=== PATIENT | male | born 1940 | race Caucasian/White ===

== ENCOUNTER 2016-05-20 09:56 | Emergency (ER) | payer OTHER ==
[~2016-05-20] VITALS: Ht 180.3 cm; Wt 81.6 kg
[2016-05-20 10:40] VITALS: BP 142/52
[2016-05-20] MEDS ORDERED: LEVO112T35 PO (10:51)
[2016-05-20] MEDS ORDERED: ATOR20TA50 PO (10:52)
[2016-05-20] MEDS ORDERED: LISI-275 PO (10:52)
[2016-05-20] MEDS ORDERED: ASPI81TA27 PO (10:52)
[2016-05-20 11:38] LABS: Basophils # (auto) 0 uL; Basophils % (auto) 0.5 % (0.0-2.0); Eosinophils # (auto) 0.3 uL; Eosinophils % (auto) 5.2 % (0.0-7.0); Hematocrit 38.6 % (41.0-53.0); Hemoglobin 12.3 g/dL (13.5-17.5); Lymphocytes # (auto) 1.3 uL; Lymphocytes % (auto) 26.8 % (10.0-50.0); Mean Corpuscular Hemoglobin 29.6 pg (28.0-32.0); Mean Corpuscular Hgb Conc. 31.8 g/dL (32.0-36.0); Mean Corpuscular Volume 93.3 fL (80.0-100.0); Mean Platelet Volume 7.8 fL (7.4-10.4); Monocytes # (auto) 0.5 uL; Monocytes % (auto) 10.8 % (0.0-12.0); Neutrophils # (auto) 2.9 uL; Neutrophils % (auto) 56.7 % (37.0-80.0); Platelet Count (auto) 243 10^3/uL (140-450); Red Cell Distribution Width 14.2 % (11.6-16.0)
[2016-05-20 12:07] LABS: Albumin 4.1 g/dL (3.4-5.0); BUN/Creatinine Ratio 22.9; Bilirubin, Total 1.3 mg/dL (0.2-1.0); Calcium 8.8 mg/dL (8.5-10.1); Potassium 4.3 mmol/L (3.5-5.1); Total Protein 7.2 g/dL (6.4-8.2)
== END 2016-05-20 13:00 | disposition home or self-care (01) ==
LOC: ER 09:56
DX: M79.604 Pain in right leg (principal); E78.5 Hyperlipidemia, unspecified; I10 Essential (primary) hypertension; I25.2 Old myocardial infarction; E07.9 Disorder of thyroid, unspecified; Z86.73 Personal history of transient ischemic attack (TIA), and cerebral infarction without residual deficits; Z90.89 Acquired absence of other organs; Z98.61 Coronary angioplasty status; Z98.890 Other specified postprocedural states
CPT/HCPCS: 36415; 80053; 85025; 85379; 93971

== ENCOUNTER → 2016-06-23 | Outpatient (CLI) | payer OTHER ==
[~2016-06-23] MED LIST: ASPI81TA27 PO; ATOR20TA50 PO; LEVO112T35 PO; LISI-275 PO
[2016-06-23 07:11] LABS: Urine RBC None Seen /hpf (0 - 3)
[2016-06-23 07:26] LABS: Basophils # (auto) 0 uL; Basophils % (auto) 0.5 % (0.0-2.0); Eosinophils # (auto) 0.5 uL; Eosinophils % (auto) 7.6 % (0.0-7.0); Hematocrit 39.4 % (41.0-53.0); Hemoglobin 13.1 g/dL (13.5-17.5); Lymphocytes # (auto) 1.7 uL; Lymphocytes % (auto) 28.6 % (10.0-50.0); Mean Corpuscular Hemoglobin 30.4 pg (28.0-32.0); Mean Corpuscular Hgb Conc. 33.2 g/dL (32.0-36.0); Mean Corpuscular Volume 91.6 fL (80.0-100.0); Mean Platelet Volume 7.7 fL (7.4-10.4); Monocytes # (auto) 0.5 uL; Monocytes % (auto) 8.3 % (0.0-12.0); Neutrophils # (auto) 3.3 uL; Platelet Count (auto) 252 10^3/uL (140-450); Red Cell Distribution Width 14.1 % (11.6-16.0)
[2016-06-23 07:43] LABS: Urine Bilirubin Negative (Negative); Urine Blood Negative /uL (Negative); Urine Color Yellow (Yellow); Urine Glucose Normal (Normal); Urine Ketone Negative (Negative); Urine Nitrite Negative (Negative); Urine Squamous Epithelial Cell FEW /hpf (<5); Urine Urobilinogen Normal (Negative)
[2016-06-23 08:22] LABS: Albumin 3.8 g/dL (3.4-5.0); BUN/Creatinine Ratio 15.4; Calcium 8.9 mg/dL (8.5-10.1); Potassium 4.7 mmol/L (3.5-5.1); Total Protein 7.2 g/dL (6.4-8.2)
== END | disposition home or self-care (01) ==
LOC: LAB 06:31
DX: I10 Essential (primary) hypertension (principal); E03.9 Hypothyroidism, unspecified
CPT/HCPCS: 36415; 80053; 80061; 81001; 84443; 85025

== ENCOUNTER → 2016-09-25 | Outpatient (CLI) | payer OTHER ==
[2016-09-25 07:58] LABS: Basophils # (auto) 0 uL; Basophils % (auto) 0.6 % (0.0-2.0); Eosinophils # (auto) 0.3 uL; Eosinophils % (auto) 7.2 % (0.0-7.0); Hematocrit 36.8 % (41.0-53.0); Hemoglobin 12.6 g/dL (13.5-17.5); Lymphocytes # (auto) 1.2 uL; Lymphocytes % (auto) 27.5 % (10.0-50.0); Mean Corpuscular Hemoglobin 31.5 pg (28.0-32.0); Mean Corpuscular Hgb Conc. 34.3 g/dL (32.0-36.0); Mean Corpuscular Volume 91.9 fL (80.0-100.0); Monocytes # (auto) 0.5 uL; Monocytes % (auto) 10.6 % (0.0-12.0); Neutrophils # (auto) 2.4 uL; Neutrophils % (auto) 54.1 % (37.0-80.0); Platelet Count (auto) 284 10^3/uL (140-450); Red Cell Distribution Width 14.2 % (11.6-16.0); White Blood Cell 4.5 10^3/uL (4.4-10.8)
[2016-09-25 08:05] LABS: Urine Bilirubin Negative (Negative); Urine Blood Negative /uL (Negative); Urine Color Yellow (Yellow); Urine Glucose Normal (Normal); Urine Ketone Negative (Negative); Urine Nitrite Negative (Negative); Urine RBC 1 /hpf (0 - 3); Urine Urobilinogen Normal (Negative); Urine pH 5.5 (5.0-8.0)
[2016-09-25 08:26] LABS: Albumin 3.7 g/dL (3.4-5.0); BUN/Creatinine Ratio 22.8; Bilirubin, Total 1.4 mg/dL (0.2-1.0); Calcium 8.5 mg/dL (8.5-10.1); Potassium 4.5 mmol/L (3.5-5.1); Total Protein 6.8 g/dL (6.4-8.2)
== END | disposition home or self-care (01) ==
LOC: LAB 07:30
DX: I10 Essential (primary) hypertension (principal); E78.5 Hyperlipidemia, unspecified; E03.9 Hypothyroidism, unspecified; N18.2 Chronic kidney disease, stage 2 (mild)
CPT/HCPCS: 36415; 80053; 80061; 81001; 84443; 85025

== ENCOUNTER 2017-07-03 18:58 | Emergency (ER) | payer OTHER ==
[~2017-07-03] VITALS: Ht 177.8 cm; Wt 74.8 kg
[2017-07-03 23:04] VITALS: BP 148/80
== END 2017-07-03 23:16 | disposition home or self-care (01) ==
LOC: EDBD 18:58 → ER 19:04
DX: S43.402A Unspecified sprain of left shoulder joint, initial encounter (principal); S43.102A Unspecified dislocation of left acromioclavicular joint, initial encounter; S16.1XXA Strain of muscle, fascia and tendon at neck level, initial encounter; S00.03XA Contusion of scalp, initial encounter; S20.219A Contusion of unspecified front wall of thorax, initial encounter; I10 Essential (primary) hypertension; I25.10 Atherosclerotic heart disease of native coronary artery without angina pectoris; E78.5 Hyperlipidemia, unspecified; I25.2 Old myocardial infarction; Z79.82 Long term (current) use of aspirin; V43.52XA Car driver injured in collision with other type car in traffic accident, initial encounter; Y93.89 Activity, other specified; Y92.488 Other paved roadways as the place of occurrence of the external cause; Y99.8 Other external cause status
CPT/HCPCS: 70450; 71045; 72125; 73030; 74176

== ENCOUNTER → 2017-10-06 | Outpatient (CLI) | payer OTHER ==
[2017-10-06 08:11] LABS: Urine Bacteria NONE SEEN /hpf (None Seen); Urine Blood Negative /uL (Negative); Urine Hyaline Cast FEW /lpf (0 - 2); Urine Mucus FEW (None Seen); Urine Specific Gravity 1.017 (1.001-1.035); Urine WBC <1 /hpf (0 - 3)
[2017-10-06 08:13] LABS: Basophils # (auto) 0 uL; Basophils % (auto) 0.8 % (0.0-2.0); Eosinophils # (auto) 0.3 uL; Eosinophils % (auto) 6.8 % (0.0-7.0); Hematocrit 36.9 % (41.0-53.0); Hemoglobin 12.4 g/dL (13.5-17.5); Lymphocytes # (auto) 1.2 uL; Lymphocytes % (auto) 27.6 % (10.0-50.0); Mean Corpuscular Hemoglobin 30.7 pg (28.0-32.0); Mean Corpuscular Hgb Conc. 33.6 g/dL (32.0-36.0); Mean Corpuscular Volume 91.6 fL (80.0-100.0); Monocytes # (auto) 0.5 uL; Monocytes % (auto) 10.3 % (0.0-12.0); Neutrophils # (auto) 2.5 uL; Neutrophils % (auto) 54.5 % (37.0-80.0); Nucleated Red Blood Cells % 0.1 %; Platelet Count (auto) 211 10^3/uL (140-450); Red Blood Cells 4.03 10^6/uL (4.5-5.90); Red Cell Distribution Width 13.8 % (11.8-14.3); White Blood Cell 4.5 10^3/uL (4.4-10.8)
[2017-10-06 08:58] LABS: Albumin 3.7 g/dL (3.4-5.0); BUN/Creatinine Ratio 15.9; Bilirubin, Total 0.7 mg/dL (0.2-1.0); Calcium 9.1 mg/dL (8.5-10.1); Potassium 4.8 mmol/L (3.5-5.1)
[2017-10-06 09:03] LABS: Free T3 2.56 pg/mL (2.3-4.2); Free T4 (Free Thyroxine) 1.21 ng/dL (0.89-1.76)
[2017-10-07 15:19] LABS: Folate (Folic Acid) 12.93 ng/mL (5.38-24)
== END | disposition home or self-care (01) ==
LOC: LAB 07:14
PROVIDERS: ATTEND Family Medicine
DX: I25.10 Atherosclerotic heart disease of native coronary artery without angina pectoris (principal); I12.9 Hypertensive chronic kidney disease with stage 1 through stage 4 chronic kidney disease, or unspecified chronic kidney disease; N18.2 Chronic kidney disease, stage 2 (mild); E78.5 Hyperlipidemia, unspecified; E03.9 Hypothyroidism, unspecified; E78.00 Pure hypercholesterolemia, unspecified; Z79.82 Long term (current) use of aspirin
CPT/HCPCS: 36415; 80053; 80061; 81001; 82306; 82607; 82746; 84439; 84443; 84481; 85025

== ENCOUNTER → 2017-11-24 | Outpatient (CLI) | payer OTHER ==
[2017-11-24 08:25] LABS: Basophils # (auto) 0 uL; Eosinophils # (auto) 0.3 uL; Eosinophils % (auto) 7.5 % (0.0-7.0); Hematocrit 36.2 % (41.0-53.0); Hemoglobin 12.3 g/dL (13.5-17.5); Lymphocytes # (auto) 1.2 uL; Lymphocytes % (auto) 29.3 % (10.0-50.0); Mean Corpuscular Hgb Conc. 33.9 g/dL (32.0-36.0); Mean Corpuscular Volume 91.6 fL (80.0-100.0); Monocytes # (auto) 0.4 uL; Monocytes % (auto) 9.6 % (0.0-12.0); Neutrophils # (auto) 2.1 uL; Neutrophils % (auto) 52.6 % (37.0-80.0); Platelet Count (auto) 209 10^3/uL (140-450); Red Blood Cells 3.96 10^6/uL (4.5-5.90); Red Cell Distribution Width 13.9 % (11.8-14.3); White Blood Cell 4.1 10^3/uL (4.4-10.8)
[2017-11-24 08:26] LABS: Urine Blood Negative /uL (Negative); Urine Specific Gravity 1.025 (1.001-1.035)
[2017-11-24 08:58] LABS: Albumin 3.7 g/dL (3.4-5.0); BUN/Creatinine Ratio 21.4; Bilirubin, Total 1.3 mg/dL (0.2-1.0); Calcium 8.6 mg/dL (8.5-10.1); Potassium 4.6 mmol/L (3.5-5.1); Total Protein 6.8 g/dL (6.4-8.2)
[2017-11-24 09:00] LABS: Free T3 3.17 pg/mL (2.3-4.2); Free T4 (Free Thyroxine) 1.75 ng/dL (0.89-1.76)
[2017-11-24 09:01] LABS: Folate (Folic Acid) 14.91 ng/mL (5.38-24)
== END | disposition home or self-care (01) ==
LOC: LAB 08:02
PROVIDERS: ATTEND Family Medicine
DX: I10 Essential (primary) hypertension (principal); R41.3 Other amnesia; E03.9 Hypothyroidism, unspecified
CPT/HCPCS: 36415; 80053; 80061; 81003; 82306; 82607; 82746; 84439; 84481; 85025

== ENCOUNTER → 2018-03-17 | Outpatient (CLI) | payer OTHER ==
[2018-03-17 11:59] LABS: Basophils # (auto) 0 uL; Basophils % (auto) 0.8 % (0.0-2.0); Eosinophils # (auto) 0.3 uL; Eosinophils % (auto) 5.5 % (0.0-7.0); Hematocrit 37.6 % (41.0-53.0); Hemoglobin 12.3 g/dL (13.5-17.5); Lymphocytes # (auto) 1.2 uL; Mean Corpuscular Hemoglobin 30.7 pg (28.0-32.0); Mean Corpuscular Hgb Conc. 32.7 g/dL (32.0-36.0); Monocytes # (auto) 0.5 uL; Monocytes % (auto) 9.8 % (0.0-12.0); Neutrophils # (auto) 2.9 uL; Neutrophils % (auto) 58.9 % (37.0-80.0); Platelet Count (auto) 230 10^3/uL (140-450); Red Blood Cells 4.01 10^6/uL (4.5-5.90); Red Cell Distribution Width 14.3 % (11.8-14.3)
[2018-03-17 12:16] LABS: Urine Bacteria NONE SEEN /hpf (None Seen); Urine Blood Negative /uL (Negative); Urine Mucus FEW (None Seen); Urine Specific Gravity 1.023 (1.001-1.035); Urine WBC <1 /hpf (0 - 3)
[2018-03-17 12:57] LABS: Albumin 3.8 g/dL (3.4-5.0); BUN/Creatinine Ratio 23.1; Bilirubin, Total 1.2 mg/dL (0.2-1.0); Calcium 8.9 mg/dL (8.5-10.1); Total Protein 6.9 g/dL (6.4-8.2)
== END | disposition home or self-care (01) ==
LOC: LAB 11:23
PROVIDERS: ATTEND Nurse Practitioner
DX: E78.5 Hyperlipidemia, unspecified (principal); I10 Essential (primary) hypertension; Z79.899 Other long term (current) drug therapy
CPT/HCPCS: 36415; 80053; 80061; 81001; 82306; 84443; 85025

== ENCOUNTER → 2018-05-07 | Outpatient (CLI) | payer OTHER ==
[2018-05-07 10:59] LABS: Basophils # (auto) 0 uL; Basophils % (auto) 0.9 % (0.0-2.0); Eosinophils # (auto) 0.2 uL; Eosinophils % (auto) 4.9 % (0.0-7.0); Hematocrit 38.8 % (41.0-53.0); Hemoglobin 13.4 g/dL (13.5-17.5); Lymphocytes % (auto) 20.7 % (10.0-50.0); Mean Corpuscular Hemoglobin 32.3 pg (28.0-32.0); Mean Corpuscular Hgb Conc. 34.6 g/dL (32.0-36.0); Mean Corpuscular Volume 93.6 fL (80.0-100.0); Monocytes # (auto) 0.5 uL; Monocytes % (auto) 9.5 % (0.0-12.0); Neutrophils # (auto) 3.1 uL; Platelet Count (auto) 242 10^3/uL (140-450); Red Blood Cells 4.14 10^6/uL (4.5-5.90); Red Cell Distribution Width 13.8 % (11.8-14.3); White Blood Cell 4.8 10^3/uL (4.4-10.8)
[2018-05-07 11:23] LABS: Urine Bacteria NONE SEEN /hpf (None Seen); Urine Blood TRACE /uL (Negative); Urine Specific Gravity 1.019 (1.001-1.035); Urine WBC <1 /hpf (0 - 3)
[2018-05-07 12:41] LABS: Folate (Folic Acid) 9.78 ng/mL (5.38-24); Prostate Specific Antigen 1.27 ng/mL (0.0-4.0)
[2018-05-07 13:26] LABS: Anion Gap 4 (5-15); Carbon Dioxide 27 mmol/L (21-32); Chloride 106 mmol/L (98-107); Potassium 4.8 mmol/L (3.5-5.1); Sodium 137 mmol/L (136-145)
[2018-05-07 13:33] LABS: Alanine Aminotransferase 24 U/L (16-61); Albumin 4.2 g/dL (3.4-5.0); Alkaline Phosphatase 83 U/L (45-117); Aspartate Aminotransferase 29 U/L (15-37); BUN/Creatinine Ratio 23.5; Bilirubin, Total 1.2 mg/dL (0.2-1.0); Blood Urea Nitrogen 28 mg/dL (7-18); Cholesterol 143 mg/dL (< 200); GFR African American > 60 mL/min; GFR Non-African American > 60 mL/min; Glucose 98 mg/dL (74-106); HDL Cholesterol 65 mg/dL (40-59); LDL Cholesterol 70 mg/dL (< 100); Total Protein 7.5 g/dL (6.4-8.2); Triglycerides 78 mg/dL (< 150); Uric Acid 3.4 mg/dL (3.5-7.2)
== END | disposition home or self-care (01) ==
LOC: LAB 10:40
PROVIDERS: ATTEND Nurse Practitioner
DX: E78.5 Hyperlipidemia, unspecified (principal)
CPT/HCPCS: 36415; 80053; 80061; 81001; 82306; 82607; 82746; 83036; 84153; 84443; 84550; 85025

== ENCOUNTER → 2018-07-29 | Outpatient (CLI) | payer OTHER ==
[2018-07-29 07:51] LABS: Basophils # (auto) 0 uL; Eosinophils # (auto) 0.4 uL; Eosinophils % (auto) 7.9 % (0.0-7.0); Hematocrit 38.7 % (41.0-53.0); Hemoglobin 12.9 g/dL (13.5-17.5); Lymphocytes # (auto) 1.1 uL; Lymphocytes % (auto) 24.5 % (10.0-50.0); Mean Corpuscular Hemoglobin 31.1 pg (28.0-32.0); Mean Corpuscular Hgb Conc. 33.4 g/dL (32.0-36.0); Mean Corpuscular Volume 93.3 fL (80.0-100.0); Monocytes # (auto) 0.5 uL; Neutrophils # (auto) 2.6 uL; Neutrophils % (auto) 55.6 % (37.0-80.0); Platelet Count (auto) 231 10^3/uL (140-450); Red Blood Cells 4.15 10^6/uL (4.5-5.90); Red Cell Distribution Width 14.1 % (11.8-14.3); White Blood Cell 4.6 10^3/uL (4.4-10.8)
[2018-07-29 08:37] LABS: Urine Bacteria NONE SEEN /hpf (None Seen); Urine Blood Negative /uL (Negative); Urine Specific Gravity 1.026 (1.001-1.035); Urine WBC 1 /hpf (0 - 3)
[2018-07-29 09:47] LABS: Albumin 3.8 g/dL (3.4-5.0); Calcium 8.8 mg/dL (8.5-10.1); Potassium 5.4 mmol/L (3.5-5.1)
[2018-07-29 09:49] LABS: Total Protein 6.8 g/dL (6.4-8.2)
== END | disposition home or self-care (01) ==
LOC: LAB 07:20
PROVIDERS: ATTEND Nurse Practitioner
DX: E78.5 Hyperlipidemia, unspecified (principal); I10 Essential (primary) hypertension; I25.10 Atherosclerotic heart disease of native coronary artery without angina pectoris
CPT/HCPCS: 36415; 80053; 81001; 83036; 85025

== ENCOUNTER → 2018-08-04 | Outpatient (CLI) | payer OTHER | END | disposition home or self-care (01) | LOC: LAB 14:16 | PROVIDERS: ATTEND Nurse Practitioner | DX: E78.5 Hyperlipidemia, unspecified (principal) | CPT/HCPCS: 82270 ==

== ENCOUNTER → 2018-09-06 | Outpatient (CLI) | payer OTHER ==
[2018-09-06 08:35] LABS: Urine Bacteria NONE SEEN /hpf (None Seen); Urine Blood TRACE /uL (Negative); Urine Specific Gravity 1.022 (1.001-1.035); Urine WBC <1 /hpf (0 - 3)
[2018-09-06 08:37] LABS: Basophils # (auto) 0 uL; Eosinophils # (auto) 0.3 uL; Eosinophils % (auto) 6.1 % (0.0-7.0); Hematocrit 40.5 % (41.0-53.0); Hemoglobin 13.3 g/dL (13.5-17.5); Lymphocytes # (auto) 1.1 uL; Lymphocytes % (auto) 25.2 % (10.0-50.0); Mean Corpuscular Hemoglobin 30.7 pg (28.0-32.0); Mean Corpuscular Hgb Conc. 32.9 g/dL (32.0-36.0); Mean Corpuscular Volume 93.1 fL (80.0-100.0); Monocytes # (auto) 0.5 uL; Monocytes % (auto) 11.5 % (0.0-12.0); Neutrophils # (auto) 2.4 uL; Neutrophils % (auto) 56.2 % (37.0-80.0); Nucleated Red Blood Cells % 0.1 %; Platelet Count (auto) 238 10^3/uL (140-450); Red Blood Cells 4.35 10^6/uL (4.5-5.90); Red Cell Distribution Width 14.3 % (11.8-14.3); White Blood Cell 4.2 10^3/uL (4.4-10.8)
[2018-09-06 09:13] LABS: Potassium 5.2 mmol/L (3.5-5.1)
[2018-09-06 09:19] LABS: Albumin 4.1 g/dL (3.4-5.0); BUN/Creatinine Ratio 21.7; Bilirubin, Total 1.4 mg/dL (0.2-1.0); Calcium 9.2 mg/dL (8.5-10.1); Total Protein 7.4 g/dL (6.4-8.2); Uric Acid 4.1 mg/dL (3.5-7.2)
[2018-09-06 10:27] LABS: Folate (Folic Acid) 8.6 ng/mL (5.38-24)
== END | disposition home or self-care (01) ==
LOC: LAB 08:03
PROVIDERS: ATTEND Nurse Practitioner
DX: E78.5 Hyperlipidemia, unspecified (principal)
CPT/HCPCS: 36415; 80053; 80061; 81001; 82306; 82607; 82746; 83036; 84443; 84550; 85025

== ENCOUNTER → 2018-09-23 | Outpatient (CLI) | payer OTHER, MEDICARE ==
[2018-09-23 14:38] LABS: Albumin 3.8 g/dL (3.4-5.0); Calcium 9.1 mg/dL (8.5-10.1)
[2018-09-23 14:42] LABS: Total Protein 7.4 g/dL (6.4-8.2)
[2018-09-23 14:46] LABS: BUN/Creatinine Ratio 18.4
== END | disposition home or self-care (01) ==
LOC: LAB 14:00
PROVIDERS: ATTEND Nurse Practitioner
DX: E03.9 Hypothyroidism, unspecified (principal)
CPT/HCPCS: 36415; 80053; 84443

== ENCOUNTER 2018-12-15 19:26 | Emergency (ER) | payer MEDICARE, OTHER ==
[~2018-12-15] VITALS: Ht 177.8 cm; Wt 72.6 kg
[~2018-12-15 19:26] MED LIST changes: +ASPI-404 PO; -ASPI81TA27 PO
[2018-12-15 19:34] VITALS: BP 98/66
[2018-12-15 21:26] LABS: Basophils # (auto) 0.1 uL; Basophils % (auto) 1.1 % (0.0-2.0); Eosinophils # (auto) 0.2 uL; Eosinophils % (auto) 2.7 % (0.0-7.0); Hematocrit 37.2 % (41.0-53.0); Hemoglobin 12.6 g/dL (13.5-17.5); Lymphocytes # (auto) 1.4 uL; Lymphocytes % (auto) 23.8 % (10.0-50.0); Mean Corpuscular Hemoglobin 31.3 pg (28.0-32.0); Mean Corpuscular Hgb Conc. 33.8 g/dL (32.0-36.0); Mean Corpuscular Volume 92.7 fL (80.0-100.0); Monocytes # (auto) 0.6 uL; Monocytes % (auto) 10.6 % (0.0-12.0); Neutrophils # (auto) 3.6 uL; Neutrophils % (auto) 61.8 % (37.0-80.0); Nucleated Red Blood Cells % 0.1 %; Platelet Count (auto) 232 10^3/uL (140-450); Red Blood Cells 4.01 10^6/uL (4.5-5.90); Red Cell Distribution Width 16.6 % (11.8-14.3); White Blood Cell 5.9 10^3/uL (4.4-10.8)
[2018-12-15 21:41] LABS: INR 0.95 (0.9-1.15); Partial Thromboplastin Time 24.5 sec (23.64-32.05)
[2018-12-15 21:43] LABS: Alanine Aminotransferase 21 U/L (16-61); Albumin 4.3 g/dL (3.4-5.0); Anion Gap 8 (5-15); Aspartate Aminotransferase 19 U/L (15-37); BUN/Creatinine Ratio 21.4; Blood Urea Nitrogen 31 mg/dL (7-18); Calcium 8.8 mg/dL (8.5-10.1); Carbon Dioxide 25 mmol/L (21-32); Chloride 104 mmol/L (98-107); GFR African American 60 mL/min; GFR Non-African American 50 mL/min; Glucose 110 mg/dL (74-106); Potassium 4.6 mmol/L (3.5-5.1); Sodium 137 mmol/L (136-145)
[2018-12-15 21:48] LABS: Alkaline Phosphatase 75 U/L (45-117); Bilirubin, Total 0.9 mg/dL (0.2-1.0); Total Protein 7.7 g/dL (6.4-8.2)
== END 2018-12-16 01:18 | disposition left against medical advice (07) ==
LOC: ER 19:26
DX: R07.9 Chest pain, unspecified (principal); Z53.21 Procedure and treatment not carried out due to patient leaving prior to being seen by health care provider
CPT/HCPCS: 36415; 71045; 80053; 83880; 84484; 85025; 85610; 85730; 93005

== ENCOUNTER → 2019-01-05 | Outpatient (CLI) | payer OTHER ==
[~2019-01-05] MED LIST changes: +BUPIVACAINE 0.25% INJ 50ML VIAL ONE; +IOHEXOL 300 MG/ML 100ML BOTTLE IJ ONE; +LIDOCAINE 1% HCL (LOCAL ANESTH.) INJ 20ML MDV ONE; +LIDOCAINE 2%HCL (LOCAL ANESTH.) INJ 20ML MDV ONE; +methylPREDNISolone ACETATE 80 MG/ML VL ONE
== END | disposition home or self-care (01) ==
LOC: XY 09:34
PROVIDERS: ATTEND Orthopaedic Surgery Adult Reconstructive Orthopaedic Surgery
DX: M16.11 Unilateral primary osteoarthritis, right hip (principal)
CPT/HCPCS: 20610; 77002; J1040; J2001; J3490; Q9967; 73501

== ENCOUNTER 2019-01-18 22:41 | Emergency (ER) | payer OTHER ==
[~2019-01-18] VITALS: Ht 180.3 cm; Wt 79.4 kg
[~2019-01-18 22:41] MED LIST changes: -BUPIVACAINE 0.25% INJ 50ML VIAL ONE; -IOHEXOL 300 MG/ML 100ML BOTTLE IJ ONE; -LIDOCAINE 1% HCL (LOCAL ANESTH.) INJ 20ML MDV ONE; -LIDOCAINE 2%HCL (LOCAL ANESTH.) INJ 20ML MDV ONE; -methylPREDNISolone ACETATE 80 MG/ML VL ONE
[2019-01-18 23:16] LABS: Basophils # (auto) 0.1 uL; Basophils % (auto) 0.7 % (0.0-2.0); Eosinophils # (auto) 0.1 uL; Hematocrit 38.1 % (41.0-53.0); Hemoglobin 12.8 g/dL (13.5-17.5); Lymphocytes # (auto) 0.7 uL; Lymphocytes % (auto) 10.4 % (10.0-50.0); Mean Corpuscular Hemoglobin 32.1 pg (28.0-32.0); Mean Corpuscular Hgb Conc. 33.7 g/dL (32.0-36.0); Mean Corpuscular Volume 95.2 fL (80.0-100.0); Monocytes # (auto) 0.6 uL; Monocytes % (auto) 8.9 % (0.0-12.0); Neutrophils # (auto) 5.7 uL; Platelet Count (auto) 264 10^3/uL (140-450); Red Blood Cells 4.01 10^6/uL (4.5-5.90); Red Cell Distribution Width 16.4 % (11.8-14.3); White Blood Cell 7.2 10^3/uL (4.4-10.8)
[2019-01-18 23:37] LABS: Albumin 3.9 g/dL (3.4-5.0); Calcium 8.8 mg/dL (8.5-10.1); Potassium 4.9 mmol/L (3.5-5.1)
[2019-01-18 23:39] LABS: BUN/Creatinine Ratio 14.5; Bilirubin, Total 1.3 mg/dL (0.2-1.0); Total Protein 7.1 g/dL (6.4-8.2)
[2019-01-19 00:01] VITALS: BP 108/64
[2019-01-19] MEDS ORDERED: LORazepam 2MG/ML-1ML VIAL ONE (01:34)
[2019-01-19] MEDS ORDERED: LORazepam 2MG/ML-1ML VIAL IV ONE (01:45)
[2019-01-19 01:52] LABS: Urine Bacteria FEW /hpf (None Seen); Urine Blood Negative /uL (Negative); Urine Hyaline Cast MOD /lpf (0 - 2); Urine Mucus FEW (None Seen); Urine Specific Gravity 1.021 (1.001-1.035); Urine WBC 1 /hpf (0 - 3)
[2019-01-19] MEDS ORDERED: diphenhdrAMINE HCL 50 MG/1 ML VL IV ONE (02:00)
== END 2019-01-19 09:32 | disposition home or self-care (01) ==
LOC: ER 22:41 → EDBD 22:41 → ER 01-19 09:24
DX: S16.1XXA Strain of muscle, fascia and tendon at neck level, initial encounter (principal); S00.03XA Contusion of scalp, initial encounter; E78.5 Hyperlipidemia, unspecified; I25.2 Old myocardial infarction; I10 Essential (primary) hypertension; Z98.61 Coronary angioplasty status; Z90.89 Acquired absence of other organs; W19.XXXA Unspecified fall, initial encounter; Y93.89 Activity, other specified; Y99.8 Other external cause status; Y92.89 Other specified places as the place of occurrence of the external cause
CPT/HCPCS: 36415; 70450; 72125; 80053; 81001; 85025; 93005; 96374; 96375; 99284; J1200; J2060

== ENCOUNTER 2019-01-19 22:38 | Emergency (ER) | payer OTHER ==
[~2019-01-19] VITALS: Ht 185.4 cm; Wt 79.4 kg
[2019-01-19 23:20] LABS: Basophils # (auto) 0 uL; Basophils % (auto) 0.4 % (0.0-2.0); Eosinophils # (auto) 0.1 uL; Eosinophils % (auto) 1.1 % (0.0-7.0); Hematocrit 37.8 % (41.0-53.0); Hemoglobin 12.7 g/dL (13.5-17.5); Lymphocytes # (auto) 0.7 uL; Mean Corpuscular Hemoglobin 31.8 pg (28.0-32.0); Mean Corpuscular Hgb Conc. 33.7 g/dL (32.0-36.0); Mean Corpuscular Volume 94.6 fL (80.0-100.0); Monocytes # (auto) 0.7 uL; Monocytes % (auto) 8.4 % (0.0-12.0); Neutrophils # (auto) 6.5 uL; Neutrophils % (auto) 81.1 % (37.0-80.0); Platelet Count (auto) 253 10^3/uL (140-450); Red Blood Cells 3.99 10^6/uL (4.5-5.90); Red Cell Distribution Width 16.4 % (11.8-14.3)
[2019-01-19 23:39] LABS: Albumin 3.8 g/dL (3.4-5.0); Anion Gap 9 (5-15); BUN/Creatinine Ratio 16.3; Blood Urea Nitrogen 25 mg/dL (7-18); Carbon Dioxide 24 mmol/L (21-32); Chloride 102 mmol/L (98-107); GFR African American 57 mL/min; GFR Non-African American 47 mL/min; Glucose 107 mg/dL (74-106); Potassium 4.4 mmol/L (3.5-5.1); Sodium 135 mmol/L (136-145)
[2019-01-19 23:48] LABS: Alanine Aminotransferase 24 U/L (16-61); Alkaline Phosphatase 79 U/L (45-117); Aspartate Aminotransferase 26 U/L (15-37); Bilirubin, Total 1.8 mg/dL (0.2-1.0); Total Protein 7.1 g/dL (6.4-8.2)
[2019-01-20] MEDS ORDERED: LIDOCAINE W/ EPINEPHRINE 1% 20ML VIAL ID ONE (05:30)
[2019-01-20] MEDS ORDERED: SODIUM CHLORIDE 0.9% 1,000 ML IV ONE (07:35)
[2019-01-20 12:00] VITALS: BP 106/67
== END 2019-01-20 13:30 | disposition home or self-care (01) ==
LOC: EDBD 22:38 → ER 22:45
DX: S05.32XA Ocular laceration without prolapse or loss of intraocular tissue, left eye, initial encounter (principal); S01.01XA Laceration without foreign body of scalp, initial encounter; R41.0 Disorientation, unspecified; F03.90 Unspecified dementia, unspecified severity, without behavioral disturbance, psychotic disturbance, mood disturbance, and anxiety; E78.5 Hyperlipidemia, unspecified; I10 Essential (primary) hypertension; I25.2 Old myocardial infarction; Z90.89 Acquired absence of other organs; Z98.61 Coronary angioplasty status; W19.XXXA Unspecified fall, initial encounter; Y93.89 Activity, other specified; Y99.8 Other external cause status; Y92.89 Other specified places as the place of occurrence of the external cause
CPT/HCPCS: 36415; 70450; 70486; 72125; 80053; 84484; 85025; 96360